=== PATIENT | male | born 1990 | race Hispanic/Latino ===

== ENCOUNTER 2021-12-24 00:03 | Emergency (ER) | payer SELFPAY ==
[2021-12-24] MEDS ORDERED: NA CHLORIDE 0.9% 1,000 ML ONE (00:38)
--- NOTE | 2021-12-24 00:53 | ER ---
Nurse's Notes [facility] Name: Sai Nugent Age: 31 yrs Sex: Male : 1990 Arrival Date: 12/24/2021 Time: 00:05 Bed 4 Private MD: Diagnosis: Adverse effect of other narcotics;Adverse effect of benzodiazepines;Other psychoactive substance abuse Presentation: 12/24 00:19 Chief complaint: EMS states: "[place] the park SpO2 in the 30's pinpoint vc1 pupils, diaphoretic.". Coronavirus screen: Vaccine status: Patient reports receiving the 2nd dose of the covid vaccine. Moderna At this time, the client does not indicate any symptoms associated with coronavirus-19. Ebola Screen: No symptoms or risks identified at this time. Initial Sepsis Screen: Does the patient meet any 2 criteria? No. Patient's initial sepsis screen is negative. Does the patient have a suspected source of infection? No. Patient's initial sepsis screen is negative. Risk Assessment: Do you want to hurt yourself or someone else? Patient reports no desire to harm self or others. Onset of symptoms was December 24, 2021. 00:19 Method Of Arrival: EMS: [facility] vc1 00:19 Acuity: DARRYL 2 vc1 Triage Assessment: 00:23 General: Appears uncomfortable, Behavior is cooperative. Pain: Denies pain. EENT: No vc1 deficits noted. Neuro: Level of Consciousness is awake, alert, obeys commands, Oriented to person, place, time, situation, Appropriate for age. Cardiovascular: Denies chest pain. Respiratory: Airway is patent Respiratory effort is even, unlabored, Respiratory pattern is regular, symmetrical. GI: No deficits noted. GI: Reports nausea. : No deficits noted. Reports. Derm: Skin is clammy. Musculoskeletal: No deficits noted. Historical: - Allergies: 00:22 No Known Allergies; vc1 - Home Meds: 00:22 None [Active]; vc1 - PMHx: 00:22 None; vc1 - PSHx: 00:22 None; vc1 - Immunization history:: Adult Immunizations up to date. - Social history:: Smoking status: Patient reports the use of cigarette tobacco products, smokes one-half pack cigarettes per day. Screenin:23 Abuse screen: Denies threats or abuse. Nutritional screening: No deficits noted. vc1 Tuberculosis screening: No symptoms or risk factors identified. Fall Risk None identified. Assessment: 01:06 Reassessment: Patient and/or family updated on plan of care and expected duration. Pain vc1 level reassessed. Patient is alert, oriented x 3, equal unlabored respirations, skin warm/dry/pink. Patient denies pain at this time. Patient states feeling better. Vital Signs: 00:19 BP 179 / 127; Pulse 98; Resp 20; Pulse Ox 100% on R/A; Weight 66.22 kg; Height 5 ft. 7 vc1 in. (170.18 cm); 01:06 BP 176 / 151; Pulse 90; Resp 19; Pulse Ox 100% ; vc1 01:19 BP 99 / 62; Pulse 72; Resp 14; Pulse Ox 99% on R/A; ja4 00:19 Body Mass Index 22.87 (66.22 kg, 170.18 cm) vc1 ED Course: 00:05 Patient arrived in ED. [facility] 00:05 Sarath Downs MD is Attending Physician. [facility] 00:20 Obinna Chaudhary RN is Primary Nurse. ja4 00:21 Acetaminophen Sent. ja4 00:21 Basic Metabolic Panel Sent. ja4 00:21 CBC with Diff Sent. ja4 00:22 Triage completed. vc1 00:22 ETOH Level Sent. ja4 00:22 Hepatic Function Sent. ja4 00:22 PT-INR Sent. ja4 00:22 Ptt, Activated Sent. ja4 00:22 Salicylate Sent. ja4 00:23 Arm band placed on right wrist. vc1 00:24 Patient has correct armband on for positive identification. Client placed on continuous vc1 cardiac and pulse oximetry monitoring. NIBP monitoring applied. 00:52 Gilberto Guevara MD is Referral Physician. [facility] 01:19 IV discontinued, intact, bleeding controlled, No redness/swelling at site. Pressure ja4 dressing applied. Administered Medications: 00:31 Drug: NS 0.9% 1000 ml Route: IV; Rate: 1 bolus; Site: left antecubital; vc1 Medication: 00:24 VIS not applicable for this client. vc1 Outcome: 00:53 Discharge ordered by . [facility] 01:19 Discharged to home [facility] 01:19 Condition: stable 01:19 Discharge instructions given to patient, Instructed on discharge instructions, follow up and referral plans. medication usage, pushing fluids Demonstrated understanding of instructions, follow-up care, medications. 01:21 Patient left the ED. jaRuby Signatures: Sarath Downs MD MD cha Calcote, Vanessa, RN RN vc1 Obinna Chaudhary RN RN ja4
--- NOTE | 2021-12-24 00:54 | EDPHYS ---
Physician Documentation [facility] Name: Sai Nugent Age: 31 yrs Sex: Male : 1990 Arrival Date: 12/24/2021 Time: 00:05 Bed 4 Private MD: ED Physician Sarath Downs HPI: 12/24 00:48 This 31 yrs old Male presents to ER via EMS with complaints of overdose, britt fentanyl. 00:48 The patient presents to the emergency department after a known overdose, a result of [facility] recreational substance abuse. Context: Method: the patient has a confirmed or suspected ingestion, of benzodiazepines, of narcotics. Associated signs and symptoms: Pertinent positives: apnea. Severity of symptoms: At their worst the symptoms were severe incapacitating in the emergency department the symptoms have improved markedly. The patient presents with trouble concentrating. Onset: The symptoms/episode began/occurred just prior to arrival. Possible causes: drug use, alcohol. Associated signs and symptoms: Pertinent positives: confusion, lightheadedness. Current symptoms: In the emergency department the patient's symptoms have improved, markedly, is less confused. Patient's baseline: Neuro: alert and fully oriented. Historical: - Allergies: 00:22 No Known Allergies; vc1 - Home Meds: 00:22 None [Active]; vc1 - PMHx: 00:22 None; vc1 - PSHx: 00:22 None; vc1 - Immunization history:: Adult Immunizations up to date. - Social history:: Smoking status: Patient reports the use of cigarette tobacco products, smokes one-half pack cigarettes per day. ROS: 00:49 Constitutional: Negative for fever, chills, and weight loss, Eyes: Negative for injury, britt pain, redness, and discharge, ENT: Negative for injury, pain, and discharge, Neck: Negative for injury, pain, and swelling, Cardiovascular: Negative for chest pain, palpitations, and edema, Respiratory: Negative for shortness of breath, cough, wheezing, and pleuritic chest pain, Abdomen/GI: Negative for abdominal pain, nausea, vomiting, diarrhea, and constipation, Back: Negative for injury and pain, : Negative for injury, bleeding, discharge, and swelling, MS/Extremity: Negative for injury and deformity, Skin: Negative for injury, rash, and discoloration, Neuro: Negative for headache, weakness, numbness, tingling, and seizure, Psych: Negative for depression, anxiety, suicide ideation, homicidal ideation, and hallucinations, Allergy/Immunology: Negative for hives, rash, and allergies, Endocrine: Negative for neck swelling, polydipsia, polyuria, polyphagia, and marked weight changes, Hematologic/Lymphatic: Negative for swollen nodes, abnormal bleeding, and unusual bruising. Exam: 00:49 Constitutional: This is a well developed, well nourished patient who is awake, alert, britt and in no acute distress. Head/Face: Normocephalic, atraumatic. Eyes: Pupils equal round and reactive to light, extra-ocular motions intact. Lids and lashes normal. Conjunctiva and sclera are non-icteric and not injected. Cornea within normal limits. Periorbital areas with no swelling, redness, or edema. ENT: Nares patent. No nasal discharge, no septal abnormalities noted. Tympanic membranes are normal and external auditory canals are clear. Oropharynx with no redness, swelling, or masses, exudates, or evidence of obstruction, uvula midline. Mucous membranes moist. Neck: Trachea midline, no thyromegaly or masses palpated, and no cervical lymphadenopathy. Supple, full range of motion without nuchal rigidity, or vertebral point tenderness. No Meningismus. Chest/axilla: Normal chest wall appearance and motion. Nontender with no deformity. No lesions are appreciated. Cardiovascular: Regular rate and rhythm with a normal S1 and S2. No gallops, murmurs, or rubs. Normal PMI, no JVD. No pulse deficits. Respiratory: Lungs have equal breath sounds bilaterally, clear to auscultation and percussion. No rales, rhonchi or wheezes noted. No increased work of breathing, no retractions or nasal flaring. Abdomen/GI: Soft, non-tender, with normal bowel sounds. No distension or tympany. No guarding or rebound. No evidence of tenderness throughout. Back: No spinal tenderness. No costovertebral tenderness. Full range of motion. Male : Normal genitalia with no discharge or lesions. Skin: Warm, dry with normal turgor. Normal color with no rashes, no lesions, and no evidence of cellulitis. MS/ Extremity: Pulses equal, no cyanosis. Neurovascular intact. Full, normal range of motion. Neuro: Awake and alert, GCS 15, oriented to person, place, time, and situation. Cranial nerves II-XII grossly intact. Motor strength 5/5 in all extremities. Sensory grossly intact. Cerebellar exam normal. Normal gait. Psych: Awake, alert, with orientation to person, place and time. Behavior, mood, and affect are within normal limits. 00:49 ECG was reviewed by the Attending Physician. Vital Signs: 00:19 BP 179 / 127; Pulse 98; Resp 20; Pulse Ox 100% on R/A; Weight 66.22 kg; Height 5 ft. 7 vc1 in. (170.18 cm); 01:06 BP 176 / 151; Pulse 90; Resp 19; Pulse Ox 100% ; vc1 01:19 BP 99 / 62; Pulse 72; Resp 14; Pulse Ox 99% on R/A; ja4 00:19 Body Mass Index 22.87 (66.22 kg, 170.18 cm) vc1 MDM: 00:05 Patient medically screened. [facility] 00:50 Differential diagnosis: Ingestion/exposure to Percocet, fentanyl over medication. [facility] Differential Diagnosis: electrolyte abnormality, overdose. Data reviewed: vital signs, nurses notes, lab test result(s), EKG. Data interpreted: monitor technician: rate is 98 beats/min, rhythm is regular, Pulse oximetry: on room air is 100 %. Test interpretation: by ED physician or midlevel provider: ECG. Counseling: I had a detailed discussion with the patient and/or guardian regarding: the historical points, exam findings, and any diagnostic results supporting the discharge/admit diagnosis, lab results, the need for outpatient follow up, for definitive care, a family practitioner, a psychiatrist. 12/24 00:05 Order name: Acetaminophen [facility] 12/24 00:05 Order name: Basic Metabolic Panel [facility] 12/24 00:05 Order name: CBC with Diff; Complete Time: 01:05 [facility] 12/24 00:05 Order name: ETOH Level [facility] 12/24 00:05 Order name: Hepatic Function [facility] 12/24 00:05 Order name: PT-INR; Complete Time: 01:05 [facility] 12/24 00:05 Order name: Ptt, Activated; Complete Time: 01:05 [facility] 12/24 00:05 Order name: Salicylate [facility] 12/24 00:05 Order name: EKG; Complete Time: 00:06 [facility] 12/24 00:05 Order name: EKG - Nurse/Tech; Complete Time: 00: [facility] 12/24 00:05 Order name: IV Saline Lock; Complete Time: 00:24 [facility] 12/24 00:05 Order name: Labs collected and sent; Complete Time: [facility] 12/24 00:05 Order name: Suicide Screening ([place]); Complete Time: [facility] EC:49 Rate is 86 beats/min. Rhythm is regular. QRS [place] is Normal. VT interval is normal. QRS britt interval is normal. QT interval is normal. No Q waves. T waves are Normal. No ST changes noted. Clinical impression: NSR w/ Non-specific ST/T Changes and No evidence of ischemia. Interpreted by me. Reviewed by me. Administered Medications: : Drug: NS 0.9% 1000 ml Route: IV; Rate: 1 bolus; Site: left antecubital; vc1 Disposition Summary: 12/24/21 00:53 Discharge Ordered Location: Home britt Problem: new britt Symptoms: have improved britt Condition: Stable britt Diagnosis - Adverse effect of other narcotics britt - Adverse effect of benzodiazepines britt - Other psychoactive substance abuse britt Followup: britt - With: Private Physician - When: 2 - 3 days - Reason: Recheck today's complaints, Continuance of care, Re-evaluation by your physician Followup: britt - With: Gilberto Guevara MD - When: 2 - 3 days - Reason: Recheck today's complaints, Continuance of care, Re-evaluation by your physician Discharge Instructions: - Discharge Summary Sheet britt - Substance Use Disorder britt - Benzodiazepine Overdose britt - Substance Use Disorder and Mental Illness britt - Supporting Someone With Substance Use Disorder britt Forms: - Medication Reconciliation Form britt - Thank You Letter britt - Antibiotic Education britt - Prescription Opioid Use britt Signatures: Dispatcher [employer] Sarath Briceno MD MD cha Calcote, Vanessa, RN RN vc1
[2021-12-24 00:59] LABS: Absolute Lymphocytes (CBC) 3.3 K/uL (0.7-4.9); Hematocrit 42.6 % (39.6-49.0); Lymphocytes % 27.7 % (15.3-44.8); MCV 98.2 fL (80-100); MPV 8.4 fL (7.6-11.3); RBC Red Blood Cell Count 4.34 M/uL (4.33-5.43)
[2021-12-24 01:04] LABS: Protime INR 1.01
[2021-12-24 02:01] LABS: ALT/SGPT 20 U/L (12-78); AST/SGOT 17 U/L (15-37); Albumin 3.5 g/dL (3.4-5.0); Alkaline Phosphatase 74 U/L (45-117); BUN Blood Urea Nitrogen 22 mg/dL (7-18); Bicarbonate 30 mmol/L (21-32); Bilirubin Total 0.1 mg/dL (0.2-1.0); Glomerular Filtration Rate 103 ml/min (=/>90); Glucose Level 91 mg/dL (74-106); Potassium 4.7 mmol/L (3.5-5.1); Protein, Total 6.4 g/dL (6.4-8.2); Sodium Level 142 mmol/L (136-145)
[2021-12-24 02:02] LABS: Bilirubin Direct < 0.1 mg/dL (0-0.2)
[2021-12-24 03:26] VITALS: BP 99/62; O2SAT 99
--- NOTE | 2021-12-24 13:48 | EKG ---
Test Date: 2021-12-24 Test Time: 00:32:40 Mining Support Worker: JEFFRY MEASUREMENT RESULTS: Intervals: Rate: 86 WV: 144 QRSD: 90 QT: 374 QTc: 447 [place]: P: 81 WV: 144 QRS: 84 T: 67 INTERPRETIVE STATEMENTS: Normal sinus rhythm ST elevation, probably due to early repolarization Borderline ECG Compared to ECG 12/13/2015 13:46:20 ST (T wave) deviation now present Electronically Signed On 12-24-21 13:47:54 CDT by Kris Christie
== END 2021-12-24 01:21 | disposition home or self-care (01) ==
LOC: ER 00:03
DX: F19.10 Other psychoactive substance abuse, uncomplicated (principal); T40.695A Adverse effect of other narcotics, initial encounter; T42.4X5A Adverse effect of benzodiazepines, initial encounter; F17.210 Nicotine dependence, cigarettes, uncomplicated
CPT/HCPCS: 36415; 80048; 80076; 80320; 80329; 85025; 85610; 85730; 93005; J7030

== ENCOUNTER 2022-06-05 13:16 | Emergency (ER) | payer SELFPAY ==
[2022-06-05 13:57] LABS: Urine Blood Negative (Negative); Urine Glucose Negative (Negative); Urine Protein Negative (Negative)
[2022-06-05 14:20] LABS: Barbiturates NEGATIVE (NEGATIVE); Benzodiazepines NEGATIVE (NEGATIVE); Cocaine NEGATIVE (NEGATIVE); METHAMPHETAM NEGATIVE (NEGATIVE); Methadone NEGATIVE (NEGATIVE); Opiates NEGATIVE (NEGATIVE); Phencyclidine NEGATIVE (NEGATIVE)
[2022-06-05 14:21] LABS: THC Cannibis POSITIVE (NEGATIVE)
[2022-06-05 14:21] LABS: SARS-CoV-2 Antigen Rapid Res Negative (Negative)
[2022-06-05 14:21] LABS: Absolute Lymphocytes (CBC) 1.9 K/uL (0.7-4.9); MCV 97.1 fL (80-100); MPV 8.4 fL (7.6-11.3); RBC Red Blood Cell Count 4.84 M/uL (4.33-5.43)
[2022-06-05 14:25] LABS: Protime INR 0.95
[2022-06-05 14:34] LABS: ALT/SGPT 18 U/L (16-61); Albumin 4.2 g/dL (3.4-5.0); Alkaline Phosphatase 80 U/L (45-117); BUN Blood Urea Nitrogen 8 mg/dL (7-18); Bicarbonate 25 mmol/L (21-32); Bilirubin Total 0.3 mg/dL (0.2-1.0); Glomerular Filtration Rate 96 ml/min (=/>90); Glucose Level 100 mg/dL (74-106); Protein, Total 7.5 g/dL (6.4-8.2); Sodium Level 138 mmol/L (136-145)
[2022-06-05 14:35] LABS: AST/SGOT 18 U/L (15-37); Bilirubin Direct < 0.1 mg/dL (0-0.2); Potassium 3.8 mmol/L (3.5-5.1)
[2022-06-05] MEDS ORDERED: NICOTINE 21 MG/PAT TD ONE (16:22)
--- NOTE | 2022-06-05 17:31 | EDPHYS ---
Physician Documentation [facility] Name: Sai Nugent Age: 32 yrs Sex: Male : 1990 Arrival Date: 06/05/2022 Time: 13:19 Bed 19 Private MD: ED Physician Clifton Singleton HPI: 06/05 17:54 This 32 yrs old Male presents to ER via Ambulatory with complaints of kb Depression, Suicidal Ideation. 18:07 Patient reports he stopped doing prescription pills about 5 months ago and since then kb has been feeling like he loses his temper over things that he should not. States he believes that he was self-medicating with the pills but now that he is not taking them he does not want to let these feelings get out of control but he also does not want to go back to taking pills. States he has had depression over the last week and intermittent thoughts of suicide. States he does not want to kill himself and he did not know where to go so that is why he is here. States he would be agreeable to inpatient or outpatient treatment. Fianc with the patient and seems very supportive.. Historical: - Allergies: 13:22 No Known Drug Allergies; ll1 - PMHx: 13:22 Depressive disorder; ll1 - Immunization history:: Adult Immunizations up to date. - Social history:: Smoking status: Patient denies any tobacco usage or history of. ROS: 17:52 Constitutional: Negative for fever, chills, and weight loss. kb 17:52 Psych: Positive for depression, suicidal ideation. 17:52 All other systems are negative. Exam: 15:29 Constitutional: This is a well developed, well nourished patient who is awake, alert, kb and in no acute distress. Head/Face: Normocephalic, atraumatic. ENT: Moist Mucous membranes Cardiovascular: Regular rate and rhythm with a normal S1 and S2. No gallops, murmurs, or rubs. No pulse deficits. Respiratory: Respirations even and unlabored. No increased work of breathing. Talking in full sentences Abdomen/GI: Soft, non-tender. No distention Back: No spinal tenderness. No costovertebral tenderness. Full range of motion. Skin: Warm, dry with normal turgor. Normal color. MS/ Extremity: Pulses equal, no cyanosis. Neurovascular intact. Full, normal range of motion. Neuro: Awake and alert, GCS 15, oriented to person, place, time, and situation. Moves all extremities. Normal gait. 15:29 ECG was reviewed by the Attending Physician. 15:29 Psych: Behavior/mood is pleasant, cooperative, depressed, Affect is calm, Oriented to person, place, time, Patient having thoughts of suicide. Judgement / Insight is normal. Memory is normal. Vital Signs: 13:23 BP 120 / 68; Pulse 97; Resp 18; Temp 98.6; Pulse Ox 95% ; ll1 17:08 BP 118 / 66; Pulse 88; Resp 18; Pulse Ox 99% on R/A; db MDM: 13:21 Patient medically screened. kb 14:38 ED course: Patient is medically cleared. [facility] will be contacted for screening and kb recommendation.. 17:29 Data reviewed: vital signs, nurses notes. ED course: [facility] screening recommends kb outpatient treatment. Patient and significant other are in agreement with this and patient seems determined to get help. Patient will follow-up with [facility] in [place].. 18:01 Differential diagnosis: depression, Suicidal ideation, acute stress reaction, anxiety. kb Consideration of Admission/Observation Transfer considered. Management of patient was discussed with the following: [facility] screener. Historians other than the Patient: Spouse/Significant Other: Fianc. Counseling: I had a detailed discussion with the patient and/or guardian regarding: the historical points, exam findings, and any diagnostic results supporting the discharge/admit diagnosis, lab results, the need for outpatient follow up, a psychiatrist, to return to the emergency department if symptoms worsen or persist or if there are any questions or concerns that arise at home. 06/05 13:34 Order name: Acetaminophen; Complete Time: 14:38 kb 06/05 13:34 Order name: Basic Metabolic Panel; Complete Time: 14:38 kb 06/05 13:34 Order name: CBC with Diff; Complete Time: 14:34 kb 06/05 13:34 Order name: ETOH Level; Complete Time: 14:34 kb 06/05 13:34 Order name: Hepatic Function; Complete Time: 14:38 kb 06/05 13:34 Order name: PT-INR; Complete Time: 14:25 kb 06/05 13:34 Order name: Ptt, Activated; Complete Time: 14:25 kb 06/05 13:34 Order name: Salicylate; Complete Time: 14:38 kb 06/05 13:34 Order name: Urine Drug Screen; Complete Time: 14:25 kb 06/05 13:34 Order name: EKG; Complete Time: 13:35 kb 06/05 13:44 Order name: SARS RAPID; Complete Time: 14:25 kb 06/05 13:57 Order name: Urine Dipstick-Ancillary; Complete Time: 14:02 EDMS 06/05 15:27 Order name: Diet Finger Food; Complete Time: 15:29 db 06/05 13:34 Order name: EKG - Nurse/Tech; Complete Time: 15:42 kb 06/05 13:34 Order name: Labs collected and sent; Complete Time: 13:57 kb 06/05 13:34 Order name: Suicide Precautions; Complete Time: 15:42 kb 06/05 13:34 Order name: Suicide Screening ([place]); Complete Time: 15:42 kb 06/05 13:34 Order name: Urine Dipstick-Ancillary (obtain specimen); Complete Time: 13:57 kb EC:29 Rate is 82 beats/min. Rhythm is regular. QRS [place] is Normal. [place] interval is normal at kb 128 msec. QRS interval is normal at 86 msec. QT interval is normal at 418 msec. Administered Medications: 17:08 Drug: Nicotine Patch 21 mg/24 hr 1 patches Route: Transdermal; Site: affected area; db 17:40 Follow up: Response: No adverse reaction db Disposition: 19:25 Co-signature as Attending Physician, Clifton MARTÍNEZ was immediately available on-site ms3 in the Emergency Department for consultation in the care of the patient. Disposition Summary: 06/05/22 17:30 Discharge Ordered Location: Home kb Condition: Stable kb Diagnosis - Acute stress reaction kb Followup: kb - With: Emergency Department - When: As needed - Reason: Worsening of condition Followup: kb - With: Private Physician - When: 2 - 3 days - Reason: Recheck today's complaints, Continuance of care, Re-evaluation by your physician Discharge Instructions: - Discharge Summary Sheet kb - Suicidal Feelings: How to Help Yourself kb - Stress, Adult kb Forms: - Medication Reconciliation Form kb - Thank You Letter kb - Antibiotic Education kb - Prescription Opioid Use kb Signatures: Dispatcher [employer] EDKathryn Morales FNP-C BUS CLEANER-Emily Villegas, RN RN ll1 Clifton Singleton, DO MONSIVAIS ms3 Krystal Aceves, RN RN db
--- NOTE | 2022-06-05 17:31 | ER ---
Nurse's Notes [facility] Name: Sai Nugent Age: 32 yrs Sex: Male : 1990 Arrival Date: 06/05/2022 Time: 13:19 Bed 19 [facility] MD: Diagnosis: Acute stress reaction Presentation: 06/05 13:22 Chief complaint: Patient states: Depression and SI since last week. Would overdose on ll1 percocet. History of drug abuse. Ebola Screen: Patient denies travel to an Ebola-affected area in the 21 days before illness onset. Initial Sepsis Screen: Does the patient meet any 2 criteria? No. Patient's initial sepsis screen is negative. Does the patient have a suspected source of infection? No. Patient's initial sepsis screen is negative. Risk Assessment: Do you want to hurt yourself or someone else? Patient reports desire/thoughts of hurting themselves or someone else. Provider notified. Onset of symptoms was May 29, 2022. 13:22 Method Of Arrival: Ambulatory ll1 13:22 Acuity: DARRYL 3 ll1 13:23 Coronavirus screen: Client denies travel out of the [place] in the last 14 days. At this ll1 time, the client does not indicate any symptoms associated with coronavirus-19. Historical: - Allergies: 13:22 No Known Drug Allergies; ll1 - PMHx: 13:22 Depressive disorder; ll1 - Immunization history:: Adult Immunizations up to date. - Social history:: Smoking status: Patient denies any tobacco usage or history of. Screenin:38 [facility] ED Fall Risk Assessment (Adult) History of falling in the last 3 months, db including since admission No falls in past 3 months (0 pts) Confusion or Disorientation No (0 pts) Intoxicated or Sedated No (0 pts) Impaired Gait No (0 pts) Mobility Assist Device Used No (0 pt) Altered Elimination No (0 pt) Score/Fall Risk Level 0 - 2 = Low Risk Oriented to surroundings, Maintained a safe environment. Abuse screen: Denies threats or abuse. Denies injuries from another. Nutritional screening: No deficits noted. Tuberculosis screening: No symptoms or risk factors identified. Assessment: 14:36 Reassessment: Patient appears in no apparent distress at this time. Patient and/or db family updated on plan of care and expected duration. Pain level reassessed. Patient is alert, oriented x 3, equal unlabored respirations, skin warm/dry/pink. depression x 1 week. has thoughts and plan to OD on percocet. friend at bedside. General: Appears in no apparent distress. comfortable, Behavior is calm, cooperative. Pain: Denies pain. Neuro: Level of Consciousness is awake, alert, obeys commands, Oriented to person, place, time, situation, Moves all extremities. Speech is normal. Cardiovascular: No deficits noted. Capillary refill < 3 seconds. Respiratory: Airway is patent Respiratory effort is even, unlabored, labored, Respiratory pattern is regular, symmetrical. 15:43 Reassessment: Patient appears in no apparent distress at this time. Patient and/or db family updated on plan of care and expected duration. Pain level reassessed. Patient is alert, oriented x 3, equal unlabored respirations, skin warm/dry/pink. [facility] at bedside. 16:55 Reassessment: Patient appears in no apparent distress at this time. Patient and/or db family updated on plan of care and expected duration. Pain level reassessed. Patient is alert, oriented x 3, equal unlabored respirations, skin warm/dry/pink. [facility] evaluation staff at patient bedside. 17:10 Reassessment: Nicotine patch placed late due to patient talking to [facility] mixing place supervisor.db 17:58 Reassessment: Patient appears in no apparent distress at this time. No changes from db previously documented assessment. Patient and/or family updated on plan of care and expected duration. Pain level reassessed. Patient is alert, oriented x 3, equal unlabored respirations, skin warm/dry/pink. General: Appears in no apparent distress. comfortable, Behavior is calm, cooperative. Psych: 14:21 [place] Suicide Severity Screening: In the past month, have you wished you were db or wished you could go to sleep and not wake up? Patient responds "yes." "In the past month, have you actually had any thoughts of killing yourself?" Patient responds "yes." "In your lifetime, have you ever done anything, started to do anything, or prepared to do anything to end your life?" Patient responds "no.". Subjective: Patient's mood is hopeless. Objective: Patient is cooperative. Interventions: Removed personal items and placed in bag. Patient placed in hospital gown. Searched person for dangerous items. Patient reassessed during use of restraints. Patient is physically safe. Safety Checks: Personal items have been removed. Door is open. Visitors are present. Pt denies substance abuse. Commitment: Patient will be a voluntary commitment. Vital Signs: 13:23 BP 120 / 68; Pulse 97; Resp 18; Temp 98.6; Pulse Ox 95% ; ll1 17:08 BP 118 / 66; Pulse 88; Resp 18; Pulse Ox 99% on R/A; db ED Course: 13:19 Patient arrived in ED. rg4 13:21 [facility]C [facility] kb 13:21 Clifton Singleton DO is Attending Physician. kb 13:22 Arm band placed on. ll1 13:23 Triage completed. ll1 13:57 SARS RAPID Sent. mb9 13:57 Acetaminophen Sent. mb9 13:57 Basic Metabolic Panel Sent. mb9 13:57 CBC with Diff Sent. mb9 13:57 ETOH Level Sent. mb9 13:57 Hepatic Function Sent. mb9 13:57 PT-INR Sent. mb9 13:57 Ptt, Activated Sent. mb9 13:57 Salicylate Sent. mb9 13:57 Urine Drug Screen Sent. mb9 13:57 Missed attempt(s): 20 gauge in left forearm. Bleeding controlled, band aid applied, mb9 catheter tip intact. 14:20 Krystal Aceves, RN is Primary Nurse. db 14:38 Patient has correct armband on for positive identification. Bed in low position. Call db light in reach. Side rails up X 1. placed in blue psych scrubs. 14:38 No provider procedures requiring assistance completed. db 14:48 [facility] called. em1 17:58 Patient did not have IV access during this emergency room visit. db Administered Medications: 17:08 Drug: Nicotine Patch 21 mg/24 hr 1 patches Route: Transdermal; Site: affected area; db 17:40 Follow up: Response: No adverse reaction db Medication: 14:38 VIS not applicable for this client. db Outcome: 17:30 Discharge ordered by . kb 17:58 Discharged to home ambulatory. db 17:58 Condition: stable 17:58 Discharge instructions given to patient, Instructed on discharge instructions, follow up and referral plans. 18:12 Patient left the ED. db Signatures: Kathryn Gorman FNP-C CAFE MANAGER-Ckb Chadwick Kamara em1 Andria Graves rg4 Emily Chavez RN RN ll1 Krystal Aceves, RN RN db Naty Larose RN RN mb9 Corrections: (The following items were deleted from the chart) 13:22 Chief complaint: Patient states: Depression and SI. ll1 ll1 13:22 Chief complaint: Patient states: Depression and SI for a few months. Would ll1 overdose on percocet ll1 13:23 Resp 18bpm; ll1 ll1 : 13:22 Onset of symptoms was March 04, 2022 [facility]
[2022-06-05 18:16] VITALS: TEMP 98.6
[2022-06-05 18:18] VITALS: BP 118/66; O2SAT 99
== END 2022-06-05 18:12 | disposition home or self-care (01) ==
LOC: ER 13:16
DX: F43.0 Acute stress reaction (principal); Z20.822 Contact with and (suspected) exposure to COVID-19
CPT/HCPCS: 36415; 80048; 80076; 80307; 81003; 85025; 85610; 85730; 87811; 93005; 99284; G0480

== ENCOUNTER 2022-07-01 14:25 | Emergency (ER) | payer SELFPAY ==
--- OUTSIDE RECORDS SUMMARY | 2022-07-01 14:59 | XMS REPORT | Continuity of Care Document ---
:1990 Author Organization [facility] t Address [address] [place] [address] Care Team Providers Name Role Phone Pcp, Patient Does Not Have A Primary Care Physician [id number] GWEN PÉREZ Attending Clinician Unavailable Gwen Pérez DO Attending Clinician Khang Whalen DO Attending Clinician Dorinda LESTER, Arturo Packer Attending Clinician Unavailable Payers Payer Name Policy Type Policy Number Effective Date Expiration Date S ource Problems This patient has no known problems. Allergies, Adverse Reactions, Alerts Allergy Allergy Status Severity Reaction(s) Onset Inactive Treating Comm ents Source Name Type Date Date Clinician NO KNOWN Drug Active Univers ALLERGIE Class ity of [facility] Social History Social Habit Start Date Stop Date Quantity Comments Source Exposure to 2022-06-08 2022-06-18 Not sure [facility]-CoV-2 00:00:00 16:43:00 [place] [facility] (event[facility] Alcohol intake 2013-01-04 2013-01-04 Current University 00:00:00 00:00:00 non-drinker of [facility] alcohol Branch (finding) Sex Assigned At [birth year] Universit y of 00:00:00 00:00:[address] [facility] Branch Smoking Status Start Date Stop Date Source Tobacco smoking consumption Univ ersity of [facility] unknown Branch Medications Ordered Filled Start Stop Current Ordering Indication Dosage Frequency Signature Comments Components Source Medication Medication Date Date Medication? Clinician (SIG) Name Name ziprasidone Yes 20mg 20 mg, Univ ers (GEODON) 2-16 Oral, BID ity of capsule 20 16:49: MEALS, [place] mg 00 First dose Medical on [place] Branch 06/19/22 at 1100, Until Discontinu ed, Routine nicotine Yes 1{patch 1 Patch, Un eagle (NICODERM) 2-16 } Topical, ity o f 21 mg/24 hr 00:00: Administer [place] patch 1 00 over 24 Medical Patch Hours, Branch Q24H, First dose on 06/18/22 at 1800, Until Discontinu ed, Routine ondansetron Yes 4mg Take 1 Tab Univers (ZOFRAN-ODT 9-03 by mouth ity of ) 4 mg 00:00: every 8 [place] disintegrat 00 (eight) Medic al ing tablet hours as Branc h needed for Nausea and Vomiting (N/V) for 6 doses. ondansetron Yes 4mg Take 1 Tab Univers (ZOFRAN-ODT 9-03 by mouth ity of ) 4 mg 00:00: every 8 [place] disintegrat 00 (eight) Medic al ing tablet hours as Branc h needed for Nausea and Vomiting (N/V) for 6 doses. Vital Signs Vital Name Observation Time Observation Value Comments Source Systolic blood 2022-06-19 13:00:00 125 [facility] Diastolic blood 2022-06-19 13:00:00 78 mm[facility]Hg[facility] rate 2022-06-19 13:00:00 80 /min [facility] Body temperature 2022-06-19 13:00:00 36.83 G[facility]chen [facility] Respiratory rate 2022-06-19 13:00:00 18 /min [facility] Oxygen saturation in 2022-06-19 13:00:00 99 /min [facility] Arterial blood by [facility] Pulse oximetry [place] Body height 2022-06-18 22:38:00 170.2 cm [facility] Body weight 2022-06-18 22:38:00 68.04 kg [facility] BMI 2022-06-18 22:38:00 23.49 kg/m2 [facility] Procedures Procedure Date / Time Performing Clinician Source Performed CREATINE KINASE 2022-06-18 22:58:00 Gwen Pérez [facility] COMP. METABOLIC PANEL 2022-06-18 22:58:00 Gwen Pérez [facility] ([id number]) [facility] SALICYLATE 2022-06-18 22:58:00 Gwen Pérez [facility] ETHANOL 2022-06-18 22:58:00 Gwen Pérez [facility] CBC WITH DIFF 2022-06-18 22:58:00 Gwen Pérez [facility] URINALYSIS 2022-06-18 22:58:00 Gwen Pérez [facility] COVID-19 (ID NOW RAPID 2022-06-18 22:58:00 Gwen Pérez [facility] TESTING) [facility] URINE DRUG (IMMUNOASSAY) 2022-06-18 22:58:00 Gwen Pérez [facility] DRUG [facility] SCREEN W/O REFLEX NOTICE OF PRIVACY 2022-06-18 22:50:08 Doctor Unassigned, No [facility] PRACTICES Name Medical [place] Encounters Start End Encounter Admission Attending Care Care Encounter Source Date/Time Date/Time Type Type Clinicians Facility Department ID 2022-06-19 Outpatient [facility] [id number] [place] 03:04:37 [id number] [facility] 2022-06-18 Outpatient [facility] [id number] [place] 23:25:42 [id number] [facility] 2022-06-10 Inpatient [facility] [id number] [place] 13:21:53 [id number] [place] 2022-06-09 Inpatient [place] [facility] [id number] 12:59:52 [id number] [place] 2022-06-18 2022-06-19 Emergency X SOFIA PÉREZ ERT [id number] Univers 16:52:00 11:11:00 GWEN bates [facility] 2022-06-18 2022-06-19 Emergency Gwen Pérez [facility] [id number] [facility] 16:52:00 11:11:00 Khang Whalen [id number] ity [facility] [id number] [facility] [id number] [facility] 084 [place] 2022-06-19 2022-06-19 Letter Dorinda LUIS [id number] Univers 00:00:00 00:00:00 (Out) Arturo ARRIOLA [id number] it y [facility] [id number] [facility] [id number] [facility] 019 [place] Results Test Test Test Results Result Source Description Time Comments Comments SALICYLATE 2022-06- SALICYLATE<10mg/L06/18/19 [place] [address] 5:37 PM [facility] 23:37:34 [facility] LABORATORYTherapeutic Range: ? Analgesic and Antipyretic Use ? 20-100 mg/L ? ? Anti-Inflammatory Use ? 100-250 mg/L Toxic Range: ? Greater than 300 mg/L ETHANOL 2022-06- ALCOHOL<10mg/dL06/18/2022 [place] [address] 5:37 PM [facility] 23:37:13 [facility] LABORATORY<10 Ryemeatw42-156 Toxic>100 Depression of GREENHOUSE WORKER>400 Fatalities Reported ACETAMINOPHEN 2022-06-18 23:37:03 Test Item Value Reference Range Interpretation Comme nts ACETAMINOP (test code = 5700817423) 10.0-30.0 L VICKY (test code = VICKY) Toxic: Greater than 200 ug/mL @ 4 hour post ingestion or greater than 50 ug/mL @ 12 hour post ingestion Lab Interpretation (test code = Abnormal 78525-0) [facility][id number][facility]2022-06-18 23:36:02 Test Item Value Reference Range Interpretation Comments NA (test code = 138 mmol/L 135-145 0830409715) K (test code = 4.2 mmol/L 3.5-5.0 2461093243) CL (test code = 106 mmol/L 98-108 5760175434) CO2 TOTAL (test code 25 mmol/L 23-31 = 7094720296) AGAP (test code = 7 2-16 9876597106) BUN (test code = 10 mg/dL 7-23 6738658841) GLUCOSE (test code = 100 mg/dL 70-110 5533841624) CREATININE (test code 0.67 mg/dL 0.60-1.25 = 7878983595) TOTAL BILI (test code 0.6 mg/dL 0.1-1.1 = 3189429543) CALCIUM (test code = 8.7 mg/dL 8.6-10.6 0111078268) T PROTEIN (test code 7.2 g/dL 6.3-8.2 = 7384154656) ALBUMIN (test code = 4.6 g/dL 3.5-5.0 4462219145) ALK PHOS (test code = 73 U/L 34-122 6506255830) ALTv (test code = 17 U/L 5-50 2-6) AST(SGOT) (test code 25 U/L 13-40 = 9468637110) eGFR (test code = 137.5 mL/min/1.73m2 1449916106) VICKY (test code = VICKY) Association of Glomerular Filtration Rate (GFR) and Staging of Kidney Disease* + + +- +| GFR (mL/min/1.73 m2) ?| With Kidney Damage ?| ?Without Kidney Damage+ ------+ ----+ ------+| ?>90 ?| ?Stage one ?| ? Normal ?+ -+ + -+| ?60-89 ?| ?Stage two ?| ? Decreased GFR ? + + +- +| ?30-59 ?| ?Stage three ?| ? Stage three ? + + +- +| ?15-29 ?| ?Stage four ? | ? Stage four ?+ -+ + -+| ?<15 (or dialysis) ? ?| ?Stage five ? | ? Stage five ?+ -+ + -+ *Each stage assumes the associated GFR level has been in effect for at least three months. ?Stages 1 to 5, with or without kidney disease, indicate chronic kidney disease. Notes: Determination of stages one and two (with eGFR >59mL/min/1.73 m2) requires estimation of kidney damage for at least three months as defined by structural or functional abnormalities of the kidney, manifested by either:Pathological abnormalities or Markers of kidney damage (including abnormalities in the composition of the blood or urine or abnormalities in imaging tests). [facility] [id number] 23:35:41 Test Item Value Reference Range Interpretation Comments CK (test code = 5339183809) 285 U/L 33-194 H Lab Interpretation (test code = Abnormal 59255-3) [facility] [id number] 23:23:41 Test Item Value Reference Range Interpretation Comments WBC (test code = 9.39 See_Comment [Automated 6690-2) message] The sy stem which generated this result transmitted reference range : 4.20 - 10.70 10*3/?L. The reference range was not used to interpret this result as normal/abnormal . RBC (test code = 4.67 See_Comment [Automated 789-8) message] The sy stem which generated this result transmitted reference range : 4.26 - 5.52 10*6/?L. The reference range was not used to interpret this result as normal/abnormal . HGB (test code = 15.2 g/dL 12.2-16.4 718-7) HCT (test code = 45.2 % 38.4-49.3 4544-3) MCV (test code = 96.8 fL 81.7-95.6 H 787-2) MCH (test code = 32.5 pg 26.1-32.7 785-6) MCHC (test code = 33.6 g/dL 31.2-35.0 786-4) RDW-SD (test code = 42.7 fL 38.5-51.6 94337-8) RDW-CV (test code = 11.9 % 12.1-15.4 L 788-0) PLT (test code = 270 See_Comment [Automated 777-3) message] The sy stem which generated this result transmitted reference range : 150 - 328 10*3/ ?L. The reference r shae was not used to interpret this result as normal/abnormal . MPV (test code = 9.9 fL 9.8-13.0 84112-1) NRBC/100 WBC (test 0.0 See_Comment [Automat ed code = 8120122403) message] The system which generated this result transmitted reference range : 0.0 - 10.0 /100 WBCs. The refer ence range was not u sed to interpret th is result as normal/abnormal . NRBC x10^3 (test code See_Comment [Auto mated = 3011386646) message] The s ystem which generated this result transmitted reference range : 10*3/?L. The reference range was not used to interpret this result as normal/abnormal . GRAN MAT (NEUT) % 60.6 % (test code = 770-8) IMM GRAN % (test code 0.30 % = 6045017202) LYMPH % (test code = 25.8 % 736-9) MONO % (test code = 9.4 % 5905-5) EOS % (test code = 3.2 % 713-8) BASO % (test code = 0.7 % 706-2) GRAN MAT x10^3(ANC) 5.69 10*3/uL 1.99-6.95 (test code = 8444861131) IMM GRAN x10^3 (test 0.03 10*3/uL 0.00-0.06 code = 2685863954) LYMPH x10^3 (test code 2.42 10*3/uL 1.09-3.23 = 731-0) MONO x10^3 (test code 0.88 10*3/uL 0.36-1.02 = 742-7) EOS x10^3 (test code = 0.30 10*3/uL 0.06-0.53 711-2) BASO x10^3 (test code 0.07 10*3/uL 0.01-0.09 = 704-7) Lab Interpretation Abnormal (test code = 04720-4) [facility]"
--- NOTE | 2022-07-01 15:20 | EDPHYS ---
Physician Documentation [facility] Name: Sai Nugent Age: 32 yrs Sex: Male : 1990 Arrival Date: 07/01/2022 Time: 14:29 Bed IW1 Private MD: ED Physician Geraldo Ma HPI: 07/01 15:01 This 32 yrs old Male presents to ER via Ambulatory with complaints of Suicidal rn Ideation, Depression. 15:01 The patient presents to the emergency department with suicide ideation, and the patient rn has a plan, to overdose with medications. Onset: The symptoms/episode began/occurred last week. Associated signs and symptoms: Pertinent positives; suicide ideation, Pertinent negatives: abdominal pain, delusions, fever, hallucinations, homicidal ideation, paranoia, substance abuse. Severity of symptoms: At their worst the symptoms were moderate in the emergency department the symptoms are unchanged. The patient has experienced similar episodes in the past. The patient has not recently seen a physician. Pt reports hx of depression and substance abuse, is now clean, but brother recently from overdose, is having a hard time and is having thoughts of harming himself. Has been having thoughts this week but has not acted on them. Has had thoughts before and never attempted. Denies attempt. . Historical: - Allergies: 15:02 No Known Allergies; ap3 - PMHx: 15:02 depressive disorder; ap3 - Social history:: Patient uses street drugs, marijuana, Smoking status: . - Family history:: not pertinent. - Hospitalizations: : No recent hospitalization is reported. ROS: 15:01 Constitutional: Negative for fever, chills, and weight loss, Cardiovascular: Negative rn for chest pain, palpitations, and edema, Respiratory: Negative for shortness of breath, cough, wheezing, and pleuritic chest pain, Abdomen/GI: Negative for abdominal pain, nausea, vomiting, diarrhea, and constipation, Back: Negative for injury and pain, MS/Extremity: Negative for injury and deformity, Skin: Negative for injury, rash, and discoloration, Neuro: Negative for headache, weakness, numbness, tingling, and seizure, Psych: + depression and suicidal ideation Exam: 15:01 Constitutional: This is a well developed, well nourished patient who is awake, alert, rn and in no acute distress. Head/Face: Normocephalic, atraumatic. Neuro: Awake and alert, GCS 15. Normal gait. Vital Signs: 14:58 BP 128 / 72; Pulse 76; Resp 17; Temp 99.3; Pulse Ox 100% ; ap3 MDM: 14:42 Patient medically screened. rn 15:15 Differential diagnosis: depression, suicidal ideation, acute stress reaction. Data rn reviewed: vital signs, nurses notes. ED course: Had long discussion with patient, explained the process to him and patient does not want to stay here for transfer or further evaluation. Called his mother while in triage and plan is to take him to psychiatric facility by personal vehicle, and they do not want to do it the normal way including transfer because of concerns of his lack of insurance. Patient does not feel like he will hurt himself, has a place to stay, no access to weapons, and does not currently have drugs on him and has been clean. Pt and mother want him to go and will return if unable to be seen by psychiatrist in timely fashion. . 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 Plans to buy fentanyl and the same way his brother did. Has not taken anything today. Denies attempt. . rn
--- NOTE | 2022-07-01 15:20 | ER ---
Nurse's Notes [facility] Name: Sai Nugent Age: 32 yrs Sex: Male : 1990 Arrival Date: 07/01/2022 Time: 14:29 Bed IW1 Private MD: Diagnosis: Suicidal ideations Presentation: 07/01 14:58 Chief complaint: Patient states: he has been trying to get his outpatient therapy set ap3 up with [facility] since the beginning of this month, however last week, he discovered his brother diseased in a reportedly presumptive overdose. Patient does currently have SI with a plan of overdosing himself, and has access to the medications he would plan on using. Coronavirus screen: At this time, the client does not indicate any symptoms associated with coronavirus-19. Ebola Screen: No symptoms or risks identified at this time. Initial Sepsis Screen: Does the patient meet any 2 criteria? No. Patient's initial sepsis screen is negative. Does the patient have a suspected source of infection? No. Patient's initial sepsis screen is negative. Risk Assessment: Do you want to hurt yourself or someone else? Patient reports desire/thoughts of hurting themselves or someone else. Provider notified. Onset of symptoms was July 01, 2022. 14:58 Acuity: DARRYL 2 ap3 14:58 Method Of Arrival: Ambulatory ap3 Triage Assessment: 15:03 General: Appears distressed, Behavior is cooperative. Pain: Denies pain. Neuro: Level ap3 of Consciousness is awake, alert, obeys commands, Oriented to person, place, time, situation. Cardiovascular: Patient's skin is warm and dry. Respiratory: Airway is patent Respiratory effort is even, unlabored, Respiratory pattern is regular, symmetrical. Historical: - Allergies: 15:02 No Known Allergies; ap3 - PMHx: 15:02 depressive disorder; ap3 - Social history:: Patient uses street drugs, marijuana, Smoking status: . - Family history:: not pertinent. - Hospitalizations: : No recent hospitalization is reported. Screenin:02 [facility] ED Fall Risk Assessment (Adult) History of falling in the last 3 months, ap3 including since admission No falls in past 3 months (0 pts). Abuse screen: Denies threats or abuse. Nutritional screening: No deficits noted. Tuberculosis screening: No symptoms or risk factors identified. Psych: 15:05 [place] Suicide Severity Screening: In the past month, have you wished you were ap3 or wished you could go to sleep and not wake up? Patient responds "yes." "In the past month, have you actually had any thoughts of killing yourself?" Patient responds "yes." "In your lifetime, have you ever done anything, started to do anything, or prepared to do anything to end your life?" Patient responds "no.". Subjective: Patient's mood is sad, Delusions are denied, Hallucinations are denied Having thoughts of suicide. Plan for suicide is overdosing on medications of which he has access to. Objective: Patient is cooperative, Speech is normal, Affect is appropriate, flat. Patient uses marijuana. 15:21 Safety Checks: patient discharged from triage room after discussion with mother and ap3 provider. Commitment: patient discharged. 15:22 Interventions: none. ap3 Vital Signs: 14:58 BP 128 / 72; Pulse 76; Resp 17; Temp 99.3; Pulse Ox 100% ; ap3 ED Course: 14:29 Patient arrived in ED. mr 14:42 Geraldo Ma MD is Attending Physician. rn 15:01 Triage completed. ap3 15:03 Arm band placed on right wrist. ap3 15:05 No provider procedures requiring assistance completed. ap3 15:22 Patient has correct armband on for positive identification. ap3 15:22 Patient did not have IV access during this emergency room visit. ap3 Administered Medications: No medications were administered Medication: 15:22 VIS not applicable for this client. ap3 Outcome: 15:19 Discharge ordered by . rn 15:22 Discharged to home ambulatory. ap3 15:22 Condition: good 15:22 Discharge instructions given to patient, Instructed on discharge instructions, follow up and referral plans. safety plan Demonstrated understanding of instructions, follow-up care, safety plan 15:22 Patient left the ED. ap3 Signatures: Naty Heck Geraldo Ma MD MD rn Prokisch, Amanda, RN RN ap3
[2022-07-01 15:35] VITALS: BP 128/72; TEMP 99.3; O2SAT 100
== END 2022-07-01 15:22 | disposition home or self-care (01) ==
LOC: ER 14:25
DX: R45.851 Suicidal ideations (principal); F32.A Depression, unspecified
CPT/HCPCS: 99284

== ENCOUNTER 2023-02-05 02:26 | Emergency (ER) | payer SELFPAY ==
--- OUTSIDE RECORDS SUMMARY | 2023-02-05 02:30 | XMS REPORT | Continuity of Care Document ---
:1990 Author Organization [facility] t Address [address] [place] [address] Care Team Providers Name Role Phone Pcp, [...] Active Univers ALLERGIE Class ity of S [facility] Social History Social Habit Start Date Stop Date Quantity Comments Source Exposure to 2022-06-08 2022-06-18 Not sure [facility]-CoV-2 00:00:00 16:43:00 [place] [facility]event[facility] Alcohol intake 2013-01-04 2013-01-04 Current University 00:00:00 00:00:00 non-drinker of [facility] alcohol Branch (finding) Sex Assigned At [birth year] Universit y of 00:00:00 00:00:00 [facility] Branch Smoking Status Start Date Stop Date Source Tobacco smoking consumption Univ ersity of [facility] unknown Branch Medications Ordered Filled Start Stop [...] Source Systolic blood 2022-06-19 13:00:00 125 mm[facility]Hg[facility] Diastolic blood 2022-06-19 13:00:00 78 mm[facility]Hg[facility] rate 2022-06-19 13:00:00 80 /min [facility] Body temperature 2022-06-19 13:00:00 36.83 [facility] rate 2022-06-19 13:00:00 18 /min [facility] Oxygen saturation in 2022-06-19 13:00:00 99 /min [facility] Arterial blood by [facility] Pulse oximetry [place] Body height 2022-06-18 22:38:00 170.2 cm [facility] Body weight 2022-06-18 22:38:00 68.04 kg [facility] BMI 2022-06-18 22:38:00 23.49 kg/m2 [facility] Procedures Procedure Date / Time Performing Clinician Source Performed CREATINE KINASE 2022-06-18 22:58:00 Gwen Pérez [facility] COMP. METABOLIC PANEL 2022-06-18 22:58:00 Gwen Pérez [facility] ([id number]) [facility] SALICYLATE 2022-06-18 22:58:00 Gwen Pérez [facility] ETHANOL 2022-06-18 22:58:00 Gwen Pérez [facility] CBC WITH DIFF 2022-06-18 22:58:00 Gwen Pérez [facility] URINALYSIS 2022-06-18 22:58:00 Gwen Pérez [facility] COVID-19 (ID NOW RAPID 2022-06-18 22:58:00 Gwen Pérez [facility] TESTING) [facility] URINE DRUG (IMMUNOASSAY) 2022-06-18 22:58:00 Gwen Pérez [facility] DRUG [facility] SCREEN W/O REFLEX NOTICE OF PRIVACY 2022-06-18 22:50:08 Doctor Unassigned, No [facility] PRACTICES Name Medical Branch Encounters Start End Encounter Admission Attending Care Care Encounter Source Date/Time Date/Time Type Type Clinicians Facility Department ID 2022-11-01 Inpatient TEXANA TEXANA [id number] [place] 23:08:05 [id number] [place] 2022-10-29 Inpatient TEXANA TEXANA [id number] [place] 10:38:15 [id number] [place] 2022-10-06 Inpatient TEXANA TEXANA [id number] [place] 09:38:59 [id number] [place] 2022-08-11 Inpatient TEXANA TEXANA [id number] [place] 11:37:08 [id number] [place] 2022-08-06 Inpatient TEXANA TEXANA [id number] [place] 15:56:40 [id number] [place] 2022-07-16 Inpatient TEXANA TEXANA [id number] [place] 12:49:09 [id number] [place] 2022-07-15 Inpatient TEXANA TEXANA [id number] [place] 09:10:44 [id number] [place] 2022-07-02 Outpatient [facility] [id number] [place] 10:40:41 [id number] [facility] 2022-06-19 Outpatient [facility] [id number] [place] 03:04:37 [id number] [facility] 2022-06-18 Outpatient [facility] [id number] [place] 23:25:42 [id number] [facility] 2022-06-10 Inpatient LILIANA [facility] [id number] [place] 13:21:53 [id number] [place] 2022-06-09 Inpatient [facility] [id number] 12:59:52 [id number] [place] 2022-06-18 2022-06-19 Emergency X BETO [facility] ERT [id number] [facility] 16:52:00 11:11:00 GWEN bates [facility] 2022-06-18 2022-06-19 Emergency Gwen Pérez [facility] [id number] [facility] 16:52:00 11:11:00 Khang Whalen [id number] [facility] [id number] [facility] [id number] [address] 2022-06-19 2022-06-19 Letter LUIS Seth [id number] [facility] 00:00:00 00:00:00 (Out) Arturo ARRIOLA [id number] it [facility] [id number] [facility] [id number] [address] Results Test Test Test Results Result Source Description Time Comments Comments SALICYLATE 2022-06- SALICYLATE<10mg/L06/18/19 [place] [address] 23 5:37 PM [facility] 23:37:34 [facility] LABORATORYTherapeutic Range: ? Analgesic and Antipyretic Use ? 20-100 mg/L ? ? Anti-Inflammatory Use ? 100-250 mg/L Toxic Range: ? Greater than 300 mg/L ETHANOL 2022-06- ALCOHOL<10mg/dL06/18/2022 [place] [address] 5:37 PM [facility] 23:37:13 [facility] LABORATORY<10 [id number] Toxic>100 Depression of SLITTER AND REWINDER>400 Fatalities Reported ACETAMINOPHEN 2022-06-18 23:37:03 Test Item Value Reference Range Interpretation Comme nts ACETAMINOP (test code = 5233435834) 10.0-30.0 L VIKCY (test code = VICKY) Toxic: Greater than 200 ug/mL @ 4 hour post ingestion or greater than 50 ug/mL @ 12 hour post ingestion Lab Interpretation (test code = Abnormal 39476-7) [facility]. METABOLIC PANEL ([id number])2022-06-18 23:36:02 Test Item Value Reference Range Interpretation Comments NA (test code = 138 mmol/L 135-145 0714665800) K (test code = 4.2 mmol/L 3.5-5.0 3686727643) CL (test code = 106 mmol/L 98-108 3770988927) CO2 TOTAL (test code 25 mmol/L 23-31 = 5024315133) AGAP (test code = 7 2-16 2118010586) BUN (test code = 10 mg/dL 7-23 6916344592) GLUCOSE (test code = 100 mg/dL 70-110 0199557570) CREATININE (test code 0.67 mg/dL 0.60-1.25 = 3303312415) TOTAL BILI (test code 0.6 mg/dL 0.1-1.1 = 1459625634) CALCIUM (test code = 8.7 mg/dL 8.6-10.6 8351159043) T PROTEIN (test code 7.2 g/dL 6.3-8.2 = 2402460817) ALBUMIN (test code = 4.6 g/dL 3.5-5.0 3589148421) ALK PHOS (test code = 73 U/L 34-122 3932970771) ALTv (test code = 17 U/L 5-50 1742-6) AST(SGOT) (test code 25 U/L 13-40 = 0136327718) eGFR (test code = 137.5 mL/min/1.73m2 3511147325) VICKY (test code = VICKY) Association of [...] or urine or abnormalities in imaging tests). [id number] 23:35:41 Test Item Value Reference Range Interpretation Comments CK (test code = 7764284911) 285 U/L 33-194 H Lab Interpretation (test code = Abnormal 31601-8) [facility] WITH [id number] 23:23:41 Test Item Value Reference Range Interpretation Comments WBC (test code = 9.39 See_Comment [Automated 7837-2) message] The sy stem which generated this result transmitted reference range : 4.20 - 10.70 10*3/?L. The reference range was not used to interpret this result as normal/abnormal . RBC (test code = 4.67 See_Comment [Automated 452-1) message] The sy stem which generated this [...] RDW-SD (test code = 42.7 fL 38.5-51.6 40216-0) RDW-CV (test code = 11.9 % 12.1-15.4 L 788-0) PLT (test code = 270 See_Comment [Automated 777-3) message] The sy stem which generated this result transmitted reference range : 150 - 328 10*3/ ?L. The reference r shae was not used to interpret this result as normal/abnormal . MPV (test code = 9.9 fL 9.8-13.0 43171-7) NRBC/100 WBC (test 0.0 See_Comment [Automat ed code = 1101364039) message] The system which generated this result transmitted reference range : 0.0 - 10.0 /100 WBCs. The refer ence range was not u sed to interpret th is result as normal/abnormal . NRBC x10^3 (test code See_Comment [Auto mated = 3646415861) message] The s ystem which generated this result transmitted reference range : 10*3/?L. The reference range was not used to interpret this result as normal/abnormal . GRAN MAT (NEUT) % 60.6 % (test code = 770-8) IMM GRAN % (test code 0.30 % = 9226294687) LYMPH % (test code = 25.8 % 736-9) MONO % (test code = 9.4 % 5905-5) EOS % (test code = 3.2 % 713-8) BASO % (test code = 0.7 % 706-2) GRAN MAT x10^3(ANC) 5.69 10*3/uL 1.99-6.95 (test code = 2850900319) IMM GRAN x10^3 (test 0.03 10*3/uL 0.00-0.06 code = 5204988761) LYMPH x10^3 (test code 2.42 10*3/uL 1.09-3.23 = 731-0) MONO x10^3 (test code 0.88 10*3/uL 0.36-1.02 = 742-7) EOS x10^3 (test code = 0.30 10*3/uL 0.06-0.53 711-2) BASO x10^3 (test code 0.07 10*3/uL 0.01-0.09 = 704-7) Lab Interpretation Abnormal (test code = 46232-0) [facility]"
[2023-02-05] MEDS ORDERED: TDAP (DIPHTH,PERTUSS(ACELL),TET VAC) 0.5 ML VIAL IMVAC ONE (02:36)
[2023-02-05] MEDS ORDERED: LIDOCAINE 1% 20 ML MDV ONE ×2 (02:36→08:43)
[2023-02-05] MEDS ORDERED: LORazepam 2 MG/ML VIAL ONE (02:36)
[2023-02-05] MEDS ORDERED: DIPHENHYDRAMINE 50 MG/ML VIAL ONE (02:49)
[2023-02-05] MEDS ORDERED: KETOROLAC 30 MG/ML INJ ONE (02:49)
[2023-02-05] MEDS ORDERED: CEFAZOLIN SODIUM 1 GM/VIAL ONE (02:49)
[2023-02-05] MEDS ORDERED: NA CHLORIDE 0.9% 1,000 ML ONE ×2 (02:49→08:24)
[2023-02-05] MEDS ORDERED: ETOMIDATE 20 MG/10 ML VIAL IV ONE (07:54)
[2023-02-05] MEDS ORDERED: MIDAZOLAM HCL 2 MG/2 ML INJ ONE ×3 (08:21→08:46)
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
[2023-02-05] MEDS ORDERED: ONDANSETRON 4 MG/2 ML VIAL ONE (09:52)
[2023-02-05 11:45] VITALS: TEMP 98.2
[2023-02-05 11:56] VITALS: O2SAT 100
[2023-02-05 11:59] VITALS: BP 98/65
== END 2023-02-05 11:26 | disposition home or self-care (01) ==
LOC: ER 02:26
PROC: 0HQ1XZZ Repair Face Skin, External Approach (ICD-10-PCS; principal; 2023-02-05)
PROC: 0HQGXZZ Repair Left Hand Skin, External Approach (ICD-10-PCS; 2023-02-05)
PROC: 0HQBXZZ Repair Right Upper Arm Skin, External Approach (ICD-10-PCS; 2023-02-05)
DX: S61.412A Laceration without foreign body of left hand, initial encounter (principal); S41.111A Laceration without foreign body of right upper arm, initial encounter; S51.811A Laceration without foreign body of right forearm, initial encounter; F10.129 Alcohol abuse with intoxication, unspecified
CPT/HCPCS: 36415; 82077; 90471; 99284; J0690; J1200; J2001; J2250; J2405; J7030